=== PATIENT | female | born 1985 | race Caucasian/White ===

== ENCOUNTER 2018-10-19 15:22 | Emergency (ER) | payer MEDICAID ==
[~2018-10-19] VITALS: Ht 149.9 cm; Wt 99.8 kg
[2018-10-19 15:37] VITALS: BP_SYST 122
--- NOTE | 2018-10-19 16:49 | NUR ---
Patient to ER bed 05 to gown for evaluation. Side rails up.
--- NOTE | 2018-10-19 16:53 | NUR ---
Pt stated that that around 2 oclock I stated to feel pressure right here, indicating upper right chest area. Pt denies cough, N/V/D, fever, or recent cold.
--- NOTE | 2018-10-19 16:59 | NUR ---
ER Dr. Deng at bedside examining patient.
--- NOTE | 2018-10-19 18:02 | NUR ---
Patient given written and verbal discharge instructions and verbalizes understanding. ER MD discussed with patient the results and treatment provided. Patient in stable condition. ID arm band removed. Rx of Omeprazole given. Patient educated on pain management and to follow up with PMD. Pain Scale 0/10. Opportunity for questions provided and answered. Medication side effect fact sheet provided.
[2018-10-19 18:06] VITALS: BP_SYST 129
== END 2018-10-19 18:02 | disposition home or self-care (01) ==
LOC: SED 15:22
DX: K21.9 Gastro-esophageal reflux disease without esophagitis (principal)
CPT/HCPCS: 71045; 81025; 99283